=== PATIENT | male | born 2000 | race African-American/Black ===

== ENCOUNTER 2022-08-05 03:24 | Emergency (ER) | payer MEDICAID ==
[~2022-08-05] VITALS: Ht 190.5 cm; Wt 100.0 kg
[~2022-08-05 03:24] MED LIST: no med
[2022-08-05] MEDS ORDERED: TETRACAINE 0.5% OPHTH DROPS 4ML RIGHTEYE ONE (04:00)
[2022-08-05] MEDS ORDERED: TETANUS, DIPHTHERIA, PERTUSSIS VAC/PF 0.5ML (>10YR OLD) IM ONE (04:00)
[2022-08-05] MEDS ORDERED: FLUORESCEIN SODIUM 1MG/STRIP RIGHTEYE ONE (04:00)
[2022-08-05] MEDS ORDERED: LIDOCAINE HCL/EPINEPHRINE 1%-EPI 1:100,000 20 ML VIAL INFIL ONE (04:00)
[2022-08-05] MEDS ORDERED: HYDROCODONE/ACETAMINOPHEN 10/325MG TABLET PO ONE (04:00)
[2022-08-05] MEDS ORDERED: KETOROLAC 60MG/2ML VIAL IM ONE (04:00)
[2022-08-05] MEDS ORDERED: LIDOCAINE HCL/EPINEPHRINE 1%-EPI 1:100,000 50 ML VIAL INFIL NR (04:30)
[2022-08-05] MEDS ORDERED: AMOXICILLIN/POTASSIUM CLAVULANATE 875/125MG TAB PO ONE (05:30)
[2022-08-05 06:47] VITALS: BP 137/72
== END 2022-08-05 07:01 | disposition home or self-care (01) ==
LOC: ER 03:24
DX: S01.111A Laceration without foreign body of right eyelid and periocular area, initial encounter (principal); S01.01XA Laceration without foreign body of scalp, initial encounter; S00.81XA Abrasion of other part of head, initial encounter; S70.01XA Contusion of right hip, initial encounter; V49.49XA Driver injured in collision with other motor vehicles in traffic accident, initial encounter; Y93.89 Activity, other specified; Y92.488 Other paved roadways as the place of occurrence of the external cause
CPT/HCPCS: 12004; 12013; 72170; 90471; 90715; 96372; 99284; J1885; J3490; Z7610

== ENCOUNTER 2022-08-12 11:19 | Emergency (ER) | payer MEDICAID ==
[~2022-08-12] VITALS: Ht 185.4 cm; Wt 113.0 kg
[2022-08-12 14:44] VITALS: BP 109/85
== END 2022-08-12 14:46 | disposition home or self-care (01) ==
LOC: ER 11:23
DX: Z48.02 Encounter for removal of sutures (principal)
CPT/HCPCS: 99281; Z7610

== ENCOUNTER 2022-08-15 09:38 | Emergency (ER) | payer MEDICAID ==
[~2022-08-15] VITALS: Ht 188 cm; Wt 113.0 kg
[2022-08-15 09:41] VITALS: BP 142/92
== END 2022-08-15 11:41 | disposition home or self-care (01) ==
LOC: ER 09:38
DX: Z48.02 Encounter for removal of sutures (principal)
CPT/HCPCS: 99281